=== PATIENT | male | born 1985 | race Hispanic/Latino ===

== ENCOUNTER 2019-05-18 06:58 | Emergency (ER) | payer SELFPAY ==
[~2019-05-18 06:58] MED LIST: HEMORRHOIDAL OINTMENT 57 GM CREAM.GM. RC SCH
[2019-05-18 07:49] LABS: BASOPHILS % (AUTO) 0.5 % (0.0-5.0); EOSINOPHILS % (AUTO) 0.8 % (0.0-8.0); HEMATOCRIT 49.2 % (42-54); LYMPHOCYTES % (AUTO) 14.7 % (21.0-51.0); MEAN CORPUSCULAR VOLUME 84.8 fL (79-99); MONOCYTES % (AUTO) 7.9 % (3.0-13.0); NEUTROPHILS % (AUTO) 76.1 % (40.0-77.0); PLATELET COUNT (AUTO) 263 K/uL (130-400); RED CELL DISTRIBUTION WIDTH 14.3 % (11.0-15.5); WHITE BLOOD COUNT (AUTO) 18.9 K/uL (4.8-10.8)
[2019-05-18] MEDS ORDERED: ONDANSETRON HCL 4 MG/2 ML VIAL ONE (07:53)
[2019-05-18] MEDS ORDERED: FAMOTIDINE/PF 20 MG/2 ML VIAL IV ONE (07:54)
[2019-05-18] MEDS ORDERED: SODIUM CHLORIDE 0.9% 1000ML 1,000 ML IV ONE (07:54)
[2019-05-18 08:01] LABS: CREATININE 0.7 mg/dL (0.5-1.5); POTASSIUM 4.3 mmol/L (3.5-5.1)
[2019-05-18 08:07] LABS: ALBUMIN 3.9 g/dL (3.5-5.0); BILIRUBIN,TOTAL 0.3 mg/dL (0.2-1.0); INR 0.98 (0.85-1.15); PARTIAL THROMBOPLASTIN TIME 31.6 SEC (26.3-35.5); PROTHROMBIN TIME 10.3 SEC (9.6-11.6); TOTAL PROTEIN, SERUM 7.1 g/dL (6.0-8.3)
[2019-05-18 08:34] LABS: APPEARANCE,URINE Clear (CLEAR); BILIRUBIN,URINE Negative (NEGATIVE); COLOR,URINE Yellow (YELLOW); GLUCOSE, URINE (UA) Negative (NEGATIVE); KETONES,URINE Negative (NEGATIVE); LEUKOCYTE ESTERASE ,URINE Negative (NEGATIVE); NITRATE,URINE Negative (NEGATIVE); OCCULT BLOOD,URINE Negative (NEGATIVE); PH,URINE 5.5 (5.0-8.0); PROTEIN,URINE Negative (NEGATIVE)
[2019-05-18 08:38] LABS: AMPHET/METH SCREEN,URINE NEGATIVE (NEGATIVE); BARBITURATE SCREEN, URINE NEGATIVE (NEGATIVE); BENZODIAZEPINES SCREEN,URINE POSITIVE (NEGATIVE); CANNABINOID SCREEN,URINE POSITIVE (NEGATIVE); COCAINE SCREEN,URINE NEGATIVE (NEGATIVE); OPIATE SCREEN,URINE NEGATIVE (NEGATIVE); PHENCYCLIDINE SCREEN,URINE NEGATIVE (NEGATIVE)
[2019-05-18 10:47] LABS: HEMATOCRIT 45.4 % (42-54)
[2019-05-18] MEDS ORDERED: LEVOFLOXACIN 500 MG TABLET ONE (11:04)
== END 2019-05-18 11:26 | disposition home or self-care (01) ==
LOC: EDH 06:58
DX: K64.0 First degree hemorrhoids (principal); K92.2 Gastrointestinal hemorrhage, unspecified; D72.829 Elevated white blood cell count, unspecified; I10 Essential (primary) hypertension
CPT/HCPCS: 36415; 71045; 74176; 80053; 80305; 81003; 82150; 82270; 82550; 83690; 84484; 85014; 85018; 85025; 85610; 85730; 93005; 96361; 96374; 96375; 99285; J2405; J3490; J7030

== ENCOUNTER 2019-05-31 15:35 | Inpatient (IN) | payer OTHER ==
[~2019-05-31] VITALS: Ht 167.6 cm; Wt 117.0 kg
[2019-05-31] MEDS ORDERED: IOHEXOL-350 75 ML VIAL IV ONE (16:34)
[2019-05-31 16:37] LABS: BASOPHILS % (AUTO) 0.5 % (0.0-5.0); EOSINOPHILS % (AUTO) 1.8 % (0.0-8.0); HEMATOCRIT 50.3 % (42-54); LYMPHOCYTES % (AUTO) 19.9 % (21.0-51.0); MEAN CORPUSCULAR HEMOGLOBIN 28.4 pg (27.0-33.0); MEAN CORPUSCULAR HGB CONC 33.2 g/dL (32.0-36.0); MEAN CORPUSCULAR VOLUME 85.5 fL (79-99); MONOCYTES % (AUTO) 7.1 % (3.0-13.0); NEUTROPHILS % (AUTO) 70.7 % (40.0-77.0); PLATELET COUNT (AUTO) 255 K/uL (130-400); RED BLOOD CELL COUNT(AUTO) 5.88 MIL/uL (4.50-6.20); RED CELL DISTRIBUTION WIDTH 14.4 % (11.0-15.5); WHITE BLOOD COUNT (AUTO) 13.7 K/uL (4.8-10.8)
[2019-05-31] MEDS ORDERED: ONDANSETRON HCL 4 MG/2 ML VIAL ONE (16:37)
[2019-05-31] MEDS ORDERED: SODIUM CHLORIDE 0.9% 1000ML 1,000 ML IV ONE ×2 (16:38→18:45)
[2019-05-31] MEDS ORDERED: MORPHINE SULFATE 4 MG/1ML SYG ONE ×2 (16:38→18:45)
[2019-05-31 16:51] LABS: APPEARANCE,URINE Clear (CLEAR); BILIRUBIN,URINE Negative (NEGATIVE); COLOR,URINE Yellow (YELLOW); GLUCOSE, URINE (UA) Negative (NEGATIVE); KETONES,URINE Trace mg/dL (NEGATIVE); LEUKOCYTE ESTERASE ,URINE Negative (NEGATIVE); NITRATE,URINE Negative (NEGATIVE); OCCULT BLOOD,URINE Negative (NEGATIVE); PROTEIN,URINE Negative (NEGATIVE)
[2019-05-31 16:54] LABS: CREATININE 0.7 mg/dL (0.5-1.5); POTASSIUM 4.4 mmol/L (3.5-5.1)
[2019-05-31 16:58] LABS: ALBUMIN 4.3 g/dL (3.5-5.0); BILIRUBIN,TOTAL 0.5 mg/dL (0.2-1.0); TOTAL PROTEIN, SERUM 7.9 g/dL (6.0-8.3)
[2019-05-31] MEDS ORDERED: LEVOFLOXACIN 750 MG/D5W 150 ML 150 ML ONE (18:44)
[2019-05-31] MEDS ORDERED: ONDANSETRON HCL 4 MG/2 ML VIAL IVP PRN (19:30)
[2019-05-31] MEDS ORDERED: ACETAMINOPHEN 325 MG TAB PO PRN (19:30)
[2019-05-31] MEDS: SODIUM CHLORIDE 0.9% 1000ML 1,000 ML IV SCH (22:36)
--- NOTE | 2019-05-31 22:45 | NUR ---
Nursing Note Spoke with washhouse hand to inform her about pt's statement's and going to need a 1:1 sitter. supervisor inspecting stated she doesn't have anyone to sit with the pt.
--- NOTE | 2019-05-31 22:50 | NUR ---
Nursing Note Spoke with Dr. Hankins that pt may need a 1:1 sitter since pt has stated in the past he has had a plan to commit suicide and pt stated that right now "I don't have a plan but I do have my crisis number and I do want to find a way out" "I just feel real depressed right now and with everything I have been told today" Pt is also going through a divorce. Also informed Dr. Hankins that the pt stated he is still in pain. Dr. Hankins stated he was not going to give the pt anything else and to order a 1:1 sitter for the pt.
--- NOTE | 2019-05-31 22:53 | NUR ---
Nursing Note Informed operations supervisor that Dr. Hankins wants a 1:1 sitter on the pt. operations supervisor stated she doesn't have anyone to watch the pt for the SCREEN TACKER to keep frequent checks on him. She also wanted the pt to be moved from room 327 to room 322 in front of the nurses station but still stating she doesn't have anyone to help us watch the pt.
[2019-05-31] MEDS ORDERED: HYDR-4379 PO (23:10)
--- NOTE | 2019-05-31 23:10 | NUR ---
Nursing Note Radiology called and informed me that the CT abd/pelvis that was already done is basically looking at the same thing as the order of the ct right hip. Radiologist stated that since it is with contrast then the recommendation is for the right hip to wait at least until morning or 24 hours since the abd/pelvis was already done with contrast.
[2019-05-31] MEDS ORDERED: DIVA-78 PO (23:20)
[2019-05-31] MEDS ORDERED: ALPR1TAB7 PO (23:20)
[2019-05-31] MEDS ORDERED: ESOM40CA PO (23:20)
[2019-05-31] MEDS ORDERED: PRAZ1CAP5 PO (23:20)
[2019-05-31] MEDS ORDERED: ATOR20TA PO (23:20)
[2019-05-31] MEDS ORDERED: HYDR50CA50 PO (23:20)
[2019-05-31] MEDS ORDERED: GABA-531 PO (23:20)
[2019-05-31] MEDS ORDERED: CLOP75TA32 PO (23:20)
[2019-05-31] MEDS ORDERED: ESCI10TA54 PO (23:20)
[2019-05-31] MEDS ORDERED: OLAN5TAB27 PO (23:20)
[2019-05-31] MEDS ORDERED: PANT40TA25 PO (23:20)
[2019-05-31] MEDS ORDERED: METO25TA6 PO (23:20)
[2019-05-31] MEDS ORDERED: NAPR-1023 PO (23:20)
[2019-05-31] MEDS ORDERED: OXCA300T28 PO (23:20)
[2019-05-31] MEDS ORDERED: ASPI-1026 PO (23:20)
--- NOTE | 2019-05-31 23:54 | NUR ---
Nursing Note Pt has been moved to room 322. Pt is being watched by CORNEL Whipple and Nurse Hardwick. We trying to watch the pt by rotating with each other and between work load.
[2019-06-01] VITALS (8 sets, daily range): BP systolic 123–158; BP diastolic 53–95
[2019-06-01] MEDS: MORPHINE SULFATE 2 MG/ML 1ML SYG IVP PRN ×2 (04:36→09:53)
[2019-06-01 06:40] LABS: HEMATOCRIT 44.4 % (42-54); MEAN CORPUSCULAR HEMOGLOBIN 28.8 pg (27.0-33.0); MEAN CORPUSCULAR HGB CONC 33.4 g/dL (32.0-36.0); MEAN CORPUSCULAR VOLUME 86.3 fL (79-99); NUCLEATED RED BLOOD CELLS 0.1 % (0.0-0.19); PLATELET COUNT (AUTO) 203 K/uL (130-400); RED BLOOD CELL COUNT(AUTO) 5.15 MIL/uL (4.50-6.20); WHITE BLOOD COUNT (AUTO) 10.7 K/uL (4.8-10.8)
[2019-06-01 06:49] LABS: MAGNESIUM 1.8 mg/dL (1.80-2.40); PHOSPHORUS 4.1 mg/dL (2.5-4.9); POTASSIUM 3.8 mmol/L (3.5-5.1)
--- NOTE | 2019-06-01 09:47 | NUR ---
DANA Emanuel met with pt who states he lives with his mother Zahida Torres [phone]. Pt reports he works at [employer], uses a cane prn, no in home care services. PCP is Dr Edmund Britt, has BC[employer] and has rx coverages. Pt denies dc needs at this time. Plan is home with mom. Addendum: 06/01/19 at 0950 by CONRADO DUNBAR SS Amended: Links added.
[2019-06-01] MEDS: SODIUM CHLORIDE 0.9% 1000ML 1,000 ML IV SCH ×2 (09:53→21:55)
[2019-06-01] MEDS ORDERED: IOHEXOL-350 75 ML VIAL IV ONE (11:11)
--- NOTE | 2019-06-01 14:30 | NUR ---
PER DR. CASTILLO HE NOTIFIED DR. TUCKER RE; RIGH HIP MUSCLE MASS.
--- NOTE | 2019-06-01 14:30 | NUR ---
Nutrition intervention: Nutrition notification for wt loss d/t not wanting to eat. Pt reports he has lost 20lb in the past 2 wks d/t fear of eating because it leads to bloody stools. Pt reports no concerns with chewing or swallowing but does report a high amount of pain. Pt's RN-Vahid aware of pt's pain. Spoke to pt about taking Ensure TID in place for his meals-pt agrees. Recommendations: Continue current diet therapy. Ensure TID for caloric intake. Monitor po intake and tolerance. Consult RD as nutrition concerns arise. Addendum: 06/01/19 at [address] Amended: Links added.
--- NOTE | 2019-06-01 15:16 | NUR ---
PATIENT COMPLAINING OF BRIGHT RED BLOODY STOOLS X 6. DR. CASTILLO AWARE STATES CONSULT GI SUPERVISOR TUNNEL HEADING.
--- NOTE | 2019-06-01 15:17 | NUR ---
KAYE OF DR. PEDERSEN OFFICE AWARE OF CONSULT STATES WILL LET DR. HEATH KNOW TODAY. INFORMATION GIVEN TO ROSA ISELA RESTREPO. RE; GI BLEED, VS INFLAMMATORY BOWEL. HX OF HEMORRHOIDS.
--- NOTE | 2019-06-01 16:00 | NUR ---
DR. MULLEN AWARE OF CONSULT [facility], STATES WILL SEE PATIENT EVENING OR TOMORROW.
[2019-06-01] MEDS ORDERED: PEG 3350/NA SULF,BICARB,CL/KCL 4000 ML SOLN PO SCH (17:00)
[2019-06-01] MEDS: HYDROMORPHONE 1 MG/1 ML AMP IVP PRN ×2 (17:22→23:32)
[2019-06-02] VITALS (23 sets, daily range): BP systolic 106–155; BP diastolic 61–93
--- NOTE | 2019-06-02 01:12 | NUR ---
NOTE PATIENT HAS LEFT ABOUT AN INCH LEFT ON JUG OF BOWEL PREP. HAS HAD SEVERAL BOWEL MOVEMENT. SAYS THE LAST ONE IS WATERY BROWN. ASKED HIM TO SHOW ME THE NEXT ONE.
--- NOTE | 2019-06-02 04:28 | NUR ---
NOTE LAST TWO BOWEL MOVEMENTS HAVE BEEN YELLOW TINGED WATERY LIQUID WITH SOME PARTICLES.
[2019-06-02] MEDS: HYDROMORPHONE 1 MG/1 ML AMP IVP PRN ×4 (04:52→19:33)
--- NOTE | 2019-06-02 06:05 | NUR ---
NOTE GI LAB STAFF HERE TO TAKE PATIENT FOR COLONOSCOPY PROCEDURE. FAMILY MEMBER THAT ARRIVED THIS AM ACCOMPANIED.
[2019-06-02] MEDS: SODIUM CHLORIDE 0.9% 1000ML 1,000 ML IV SCH (11:15)
[2019-06-02] MEDS ORDERED: GADODIAMIDE 10 MMOL/20 ML VIAL IV ONE (12:40)
[2019-06-03] MEDS: SODIUM CHLORIDE 0.9% 1000ML 1,000 ML IV SCH (03:11)
[2019-06-03 04:10] VITALS: BP 104/71
[2019-06-03] MEDS: HYDROMORPHONE 1 MG/1 ML AMP IVP PRN ×3 (04:27→20:27)
[2019-06-03 08:00] VITALS: BP 137/78
[2019-06-03 12:00] VITALS: BP 133/94
[2019-06-03 16:00] VITALS: BP 134/89
--- NOTE | 2019-06-03 19:07 | NUR ---
DR. MULLEN WILL SEE PATIENT TOMORROW.
[2019-06-03 20:00] VITALS: BP 138/77
[2019-06-03] MEDS: LACTULOSE 20 GM/30 ML UDCUP PO SCH (20:27)
[2019-06-04] VITALS (7 sets, daily range): BP systolic 99–150; BP diastolic 54–83
[2019-06-04] MEDS: HYDROMORPHONE 1 MG/1 ML AMP IVP PRN ×4 (02:10→23:17)
[2019-06-04] MEDS: SODIUM CHLORIDE 0.9% 1000ML 1,000 ML IV SCH ×2 (02:11→23:40)
[2019-06-04] MEDS: LACTULOSE 20 GM/30 ML UDCUP PO SCH ×2 (08:57→20:09)
--- NOTE | 2019-06-04 15:43 | NUR ---
DR HORTON WAS NOTIFIED ABOUT THE CONSULT. NO ORDERS GIVEN.
[2019-06-04] MEDS: OXCARBAZEPINE 300 MG TAB PO SCH (20:09)
[2019-06-04] MEDS: GABAPENTIN 300 MG CAPSULE PO SCH (20:09)
[2019-06-04] MEDS: HYDROCODONE/ACETAMINOPHEN 7.5/325 MG TAB PO PRN (20:09)
[2019-06-04] MEDS: ALPRAZOLAM 1 MG TAB PO SCH (20:09)
[2019-06-04] MEDS: ATORVASTATIN CALCIUM 40 MG TABLET PO SCH (20:09)
[2019-06-04] MEDS: METOPROLOL TARTRATE 25 MG TAB PO SCH (20:10)
--- NOTE | 2019-06-04 20:10 | NUR ---
MEDS SHIFT ASSESSMENT DONE, PLEASE REFER TO CHART. PT CLAIMS OF PAINS ON HIS RECTAL AREA. FEELING WARM ON HIS RT HIP AREA. DUE MEDS ADMINISTERED, NORCO PO GIVEN FOR PAINS. PT TOLERATED WELL. KEPT RESTED AND COMFORTABLE. IVF CONTINUED. CALL LIGHT WITHIN REACH. WILL RE-ASSESS PT.
[2019-06-04] MEDS: PRAZOSIN HCL 1 MG PO SCH (20:11)
--- NOTE | 2019-06-04 21:10 | NUR ---
RE-ASSESS PT VERBALIZES THAT PAIN HAD SUBSIDED. PT TRYING TO GET SOME REST AND SLEEP. KEPT ROOM LIGHT DIMMED. WILL MONITOR PT.
--- NOTE | 2019-06-05 02:00 | NUR ---
ROUNDS PT RESTING WELL, NO DISTRESS NOTED. NO CONCERNS VERBALIZED. KEPT RESTED AND COMFORTABLE. CALL LIGHT WITHIN REACH. WILL MONITOR PT.
[2019-06-05 04:41] VITALS: BP 117/54
[2019-06-05] MEDS: SODIUM CHLORIDE 0.9% 1000ML 1,000 ML IV SCH ×3 (04:48→21:10)
--- NOTE | 2019-06-05 05:55 | NUR ---
ROUNDS PT RESTING WELL, FAIRLY ASLEEP. NO DISTRESS NOTED. KEPT UNDISTURBED FOR NOW. CALL LIGHT WITHIN REACH. FOR MORE CARE.
[2019-06-05 08:00] VITALS: BP 126/77
[2019-06-05] MEDS: OLANZAPINE 5 MG TAB PO SCH (09:30)
[2019-06-05] MEDS: DIVALPROEX SODIUM 250 MG TABLET.DR PO SCH (09:30)
[2019-06-05] MEDS: CLOPIDOGREL BISULFATE 75 MG TAB PO SCH (09:30)
[2019-06-05] MEDS: ASPIRIN 325 MG TABLET PO SCH (09:30)
[2019-06-05] MEDS: ALPRAZOLAM 1 MG TAB PO SCH ×2 (09:30→19:52)
[2019-06-05] MEDS: LACTULOSE 20 GM/30 ML UDCUP PO SCH ×2 (09:31→19:52)
[2019-06-05] MEDS: OXCARBAZEPINE 300 MG TAB PO SCH ×3 (09:31→21:09)
[2019-06-05] MEDS: CITALOPRAM 20 MG TABLET PO SCH (09:31)
[2019-06-05] MEDS: PANTOPRAZOLE SODIUM 40 MG TABLET.DR PO SCH (09:31)
[2019-06-05] MEDS: METOPROLOL TARTRATE 25 MG TAB PO SCH ×2 (09:31→19:52)
[2019-06-05] MEDS: GABAPENTIN 300 MG CAPSULE PO SCH ×3 (09:31→21:09)
[2019-06-05 11:00] VITALS: BP 111/62
[2019-06-05] MEDS ORDERED: HYDROXYZINE HCL 25 MG TABLET PO PRN (12:15)
[2019-06-05 12:50] LABS: BASOPHILS % (AUTO) 0.6 % (0.0-5.0); EOSINOPHILS % (AUTO) 2.5 % (0.0-8.0); HEMATOCRIT 42.4 % (42-54); LYMPHOCYTES % (AUTO) 22.6 % (21.0-51.0); MEAN CORPUSCULAR HEMOGLOBIN 29.2 pg (27.0-33.0); MEAN CORPUSCULAR HGB CONC 34.1 g/dL (32.0-36.0); MEAN CORPUSCULAR VOLUME 85.5 fL (79-99); MONOCYTES % (AUTO) 9.8 % (3.0-13.0); NEUTROPHILS % (AUTO) 64.5 % (40.0-77.0); PLATELET COUNT (AUTO) 194 K/uL (130-400); RED BLOOD CELL COUNT(AUTO) 4.96 MIL/uL (4.50-6.20); WHITE BLOOD COUNT (AUTO) 9.3 K/uL (4.8-10.8)
[2019-06-05 13:01] LABS: CREATININE 0.9 mg/dL (0.5-1.5); POTASSIUM 3.9 mmol/L (3.5-5.1)
[2019-06-05 13:02] LABS: INR 0.93 (0.85-1.15); PROTHROMBIN TIME 9.8 SEC (9.6-11.6)
[2019-06-05] MEDS ORDERED: ZOLPIDEM TARTRATE 5 MG TAB PO PRN (14:15)
[2019-06-05] MEDS: HYDROMORPHONE 1 MG/1 ML AMP IVP PRN (14:44)
[2019-06-05 16:00] VITALS: BP 106/54
[2019-06-05] MEDS: HYDROCORTISONE 25 MG SUPPOSITORY PR SCH (19:52)
[2019-06-05] MEDS: ATORVASTATIN CALCIUM 40 MG TABLET PO SCH (19:52)
[2019-06-05] MEDS: HYDROCODONE/ACETAMINOPHEN 7.5/325 MG TAB PO PRN (19:52)
--- NOTE | 2019-06-05 19:52 | NUR ---
ASSESS SHIFT ASSESSMENT DONE. PT CLAIMS OF RECTAL AND ABDOMINAL PAINS. DUE MEDS ADMINISTERED, NORCO GIVEN FOR PAINS. KEPT RESTED AND COMFORTABLE IN BED. INSTRUCTED TO BE NPO POST MN FOR PROCEDURE IN AM. WILL RE-ASSESS PT. Addendum: 06/05/19 at 2208 by CALLIE HOUSTON RN RN Amended: Links added.
[2019-06-05 20:00] VITALS: BP 144/93
[2019-06-05] MEDS: PRAZOSIN HCL 1 MG PO SCH (21:00)
--- NOTE | 2019-06-05 22:00 | NUR ---
ROUNDS PT ALREADY FAIRLY ASLEEP WITH RESPIRATIONS EVEN AND UNLABORED. NO DISTRESS NOTED. KEPT UNDISTURBED FOR NOW. CALL LIGHT WITHIN REACH. WILL MONITOR PT.
[2019-06-06] VITALS: BP 125/75
--- NOTE | 2019-06-06 01:00 | NUR ---
WALK PT SEEN WALKING AROUND THE FLOOR. NO DISTRESS NOTED.
[2019-06-06] MEDS: HYDROMORPHONE 1 MG/1 ML AMP IVP PRN ×3 (02:12→20:33)
--- NOTE | 2019-06-06 02:12 | NUR ---
PAIN PT VERBALIZES INABILITY TO SLEEP DUE TO PAIN ON HIS RECTUM AND RT HIP AREAS. MEDICATED WITH DILAUDID IV. KEPT COMFORTABLE IN BED. KEPT NPO. WILL RE-ASSESS PT.
[2019-06-06 03:58] VITALS: BP 118/77
--- NOTE | 2019-06-06 05:05 | NUR ---
ROUNDS PT STILL FAIRLY ASLEEP. NO DISTRESS NOTED. KEPT UNDISTURBED FOR NOW. CALL LIGHT WITHIN EACH. KEPT NPO. FOR MORE CARE AND MANAGEMENT.
[2019-06-06 07:00] VITALS: BP 120/74
[2019-06-06] MEDS: SODIUM CHLORIDE 0.9% 1000ML 1,000 ML IV SCH ×2 (08:35→20:28)
[2019-06-06] MEDS: CLOPIDOGREL BISULFATE 75 MG TAB PO SCH (09:00)
[2019-06-06] MEDS: CITALOPRAM 20 MG TABLET PO SCH (09:00)
[2019-06-06] MEDS: OXCARBAZEPINE 300 MG TAB PO SCH ×3 (09:00→20:24)
[2019-06-06] MEDS: PANTOPRAZOLE SODIUM 40 MG TABLET.DR PO SCH (09:00)
[2019-06-06] MEDS: DIVALPROEX SODIUM 250 MG TABLET.DR PO SCH (09:00)
[2019-06-06] MEDS: HYDROCORTISONE 25 MG SUPPOSITORY PR SCH ×2 (09:00→20:25)
[2019-06-06] MEDS: ASPIRIN 325 MG TABLET PO SCH (09:00)
[2019-06-06] MEDS: ALPRAZOLAM 1 MG TAB PO SCH ×2 (09:00→20:24)
[2019-06-06] MEDS: OLANZAPINE 5 MG TAB PO SCH (09:00)
[2019-06-06] MEDS: LACTULOSE 20 GM/30 ML UDCUP PO SCH ×2 (09:00→20:23)
[2019-06-06] MEDS: METOPROLOL TARTRATE 25 MG TAB PO SCH ×2 (09:00→20:23)
[2019-06-06] MEDS: GABAPENTIN 300 MG CAPSULE PO SCH ×3 (09:00→20:24)
[2019-06-06] MEDS ORDERED: FENTANYL CITRATE PF 50 MCG/1 ML 2ML VIAL ONE (11:26)
[2019-06-06] MEDS ORDERED: MIDAZOLAM HCL 1 MG/ML 2ML VIAL ONE (11:26)
--- NOTE | 2019-06-06 12:15 | NUR ---
CT GD RT HIP BX PROCEDURE PERFORMED BY DR Truong OLSON. PUNCTURE SITE RT HIP. SPECIMEN X4 COLLECTED AND SENT TO LAB. END OF PROCEDURE AT 1155. BIOPSY NEEDLE REMOVED AND DRESSING APPLIED. NO BLEEDING NOTED AND PATIENT TOLERATED PROCEDURE WELL. REPORT GIVEN TO Truong DODD RN AND PATIENT TRANSPORTED TO [facility] VIA BED AT 1215.
[2019-06-06 16:00] VITALS: BP 165/89
[2019-06-06 20:00] VITALS: BP 131/84
[2019-06-06] MEDS: PRAZOSIN HCL 1 MG PO SCH (20:22)
[2019-06-06] MEDS: ATORVASTATIN CALCIUM 40 MG TABLET PO SCH (20:24)
--- NOTE | 2019-06-06 21:00 | NUR ---
CARE ASSUMED CARE OF PT. CLAIMS PAIN TO RT HIP IS BETTER. ASKED FOR COLD PACKS TO APPLY AND PROVIDED. KEPT RESTED AND COMFORTABLE. CONTINUED IVF. KEPT COMFORTABLE. WILL MONITOR PT. CALL LIGHT WITHIN REACH.
[2019-06-07] VITALS: BP 113/70
--- NOTE | 2019-06-07 02:00 | NUR ---
ROUNDS PT FAIRLY ASLEEP WITH RESPIRATIONS EVEN AND UNLABORED. NO NOTED DISTRESS. KEPT UNDISTURBED FOR NOW. WILL CONTINUE TO MONITOR. CALL LIGHT WITHIN REACH. WILL MONITOR PT.
[2019-06-07 04:00] VITALS: BP 133/71
--- NOTE | 2019-06-07 05:36 | NUR ---
ROUNDS PT ALREADY AWAKE. NO CONCERNS VERBALIZED. NO DISTRESS NOTED. KEPT RESTED AND COMFORTABLE. FOR MORE CARE.
[2019-06-07 08:00] VITALS: BP 149/80
[2019-06-07] MEDS: HYDROMORPHONE 1 MG/1 ML AMP IVP PRN (08:43)
[2019-06-07] MEDS: LACTULOSE 20 GM/30 ML UDCUP PO SCH (10:31)
[2019-06-07] MEDS: CLOPIDOGREL BISULFATE 75 MG TAB PO SCH (10:32)
[2019-06-07] MEDS: DIVALPROEX SODIUM 250 MG TABLET.DR PO SCH (10:32)
[2019-06-07] MEDS: PANTOPRAZOLE SODIUM 40 MG TABLET.DR PO SCH (10:32)
[2019-06-07] MEDS: CITALOPRAM 20 MG TABLET PO SCH (10:32)
[2019-06-07] MEDS: ALPRAZOLAM 1 MG TAB PO SCH (10:32)
[2019-06-07] MEDS: METOPROLOL TARTRATE 25 MG TAB PO SCH (10:33)
[2019-06-07] MEDS: ASPIRIN 325 MG TABLET PO SCH (10:33)
[2019-06-07] MEDS: HYDROCORTISONE 25 MG SUPPOSITORY PR SCH (10:33)
[2019-06-07] MEDS: OLANZAPINE 5 MG TAB PO SCH (10:33)
[2019-06-07] MEDS: SODIUM CHLORIDE 0.9% 1000ML 1,000 ML IV SCH (10:39)
[2019-06-07] MEDS: OXCARBAZEPINE 300 MG TAB PO SCH ×2 (10:39→16:52)
[2019-06-07] MEDS: GABAPENTIN 300 MG CAPSULE PO SCH ×2 (10:39→16:52)
[2019-06-07 12:00] VITALS: BP 124/80
--- NOTE | 2019-06-07 14:50 | NUR ---
RD Follow up Pt tolerating current diet with no report of GI distress and PO intake at 100%. Pt 1:1 observation discontinued as per EMR. Pt LBM 06/06/19. Pt monitored labs: Glu 112. No nutrition concerns at this time. RD to continue to monitor. Please notify as nutritional concerns arise. Thank you. Addendum: 06/07/19 at [address] Amended: Links added.
--- NOTE | 2019-06-07 17:19 | NUR ---
DISCHARGE Instructions provided. Patient is aware no appointment was made for [facility]. Talent Acquisition Sourcer tried to make appoiontment but information was that patient needs to call himself due to [facility] needs to inform patient how they work as there are costs related to care. Patient was made aware of this and verbalized and demonstrated understanding. He left hospital in no distress, accompanied by his children and ex-. Appointments for oncology and orthopedic surgeon were scheduled and information given to patient. Hep lock was removed from left hand # 20 gauge without any issues.
== END 2019-06-07 17:20 | disposition home or self-care (01) | DRG 393 ==
LOC: EDH 15:35 → EDHIP 15:36 → 3DH 21:49
PROVIDERS: ADMIT Internal Medicine Infectious Disease; ATTEND Internal Medicine Infectious Disease
PROC: 0DBQ8ZX Excision of Anus, Via Natural or Artificial Opening Endoscopic, Diagnostic (ICD-10-PCS; principal; 2019-06-02)
PROC: 0SB Lower Joints, Excision (ICD-10-PCS; 2019-06-02)
DX: K64.0 First degree hemorrhoids (principal); K57.31 Diverticulosis of large intestine without perforation or abscess with bleeding; Z68.41 Body mass index [BMI] 40.0-44.9, adult; R45.851 Suicidal ideations; K62.89 Other specified diseases of anus and rectum; D72.829 Elevated white blood cell count, unspecified; E11.9 Type 2 diabetes mellitus without complications; E66.01 Morbid (severe) obesity due to excess calories; F17.210 Nicotine dependence, cigarettes, uncomplicated; F32.9 Major depressive disorder, single episode, unspecified; F43.22 Adjustment disorder with anxiety; G89.29 Other chronic pain; I10 Essential (primary) hypertension; M23.41 Loose body in knee, right knee; K64.4 Residual hemorrhoidal skin tags; Z71.89 Other specified counseling; I25.2 Old myocardial infarction; Z79.899 Other long term (current) drug therapy; Z88.8 Allergy status to other drugs, medicaments and biological substances; Z86.73 Personal history of transient ischemic attack (TIA), and cerebral infarction without residual deficits; Z80.0 Family history of malignant neoplasm of digestive organs
CPT/HCPCS: 20200; 36415; 45380; 71046; 73702; 73723; 74177; 77012; 80048; 80053; 81003; 83690; 83735; 84100; 85025; 85027; 85610; 88305; 88307; 99152; A9579; G0378; J1170; J1956; J2250; J2270; J2405; J3010; J7030; Q9967

== ENCOUNTER 2019-06-10 13:20 | Emergency (ER) | payer OTHER ==
[~2019-06-10 13:20] MED LIST changes: +ALPR1TAB7 PO; +ASPI-1026 PO; +ATOR20TA PO; +CLOP75TA32 PO; +DIVA-78 PO; +ESCI10TA54 PO; +ESOM40CA PO; +GABA-531 PO; -HEMORRHOIDAL OINTMENT 57 GM CREAM.GM. RC SCH; +HYDR-4379 PO; +HYDR50CA50 PO; +METO25TA6 PO; +NAPR-1023 PO; +OLAN5TAB27 PO; +OXCA300T28 PO; +PANT40TA25 PO; +PRAZ1CAP5 PO
[2019-06-10] MEDS ORDERED: ONDANSETRON HCL 4 MG/2 ML VIAL ONE (13:59)
[2019-06-10] MEDS ORDERED: SODIUM CHLORIDE 0.9% 1000ML 1,000 ML IV ONE (13:59)
[2019-06-10 14:29] LABS: BASOPHILS % (AUTO) 0.6 % (0.0-5.0); EOSINOPHILS % (AUTO) 1.9 % (0.0-8.0); HEMATOCRIT 46.1 % (42-54); LYMPHOCYTES % (AUTO) 19.7 % (21.0-51.0); MEAN CORPUSCULAR HEMOGLOBIN 28.6 pg (27.0-33.0); MEAN CORPUSCULAR HGB CONC 33.4 g/dL (32.0-36.0); MEAN CORPUSCULAR VOLUME 85.5 fL (79-99); MONOCYTES % (AUTO) 7.9 % (3.0-13.0); NEUTROPHILS % (AUTO) 69.9 % (40.0-77.0); PLATELET COUNT (AUTO) 231 K/uL (130-400); RED BLOOD CELL COUNT(AUTO) 5.39 MIL/uL (4.50-6.20); RED CELL DISTRIBUTION WIDTH 13.8 % (11.0-15.5); WHITE BLOOD COUNT (AUTO) 11.4 K/uL (4.8-10.8)
[2019-06-10 15:08] LABS: CREATININE 0.7 mg/dL (0.5-1.5); POTASSIUM 4.2 mmol/L (3.5-5.1)
[2019-06-10 15:12] LABS: ALBUMIN 3.7 g/dL (3.5-5.0); BILIRUBIN,DIRECT 0.1 mg/dL (0.0-0.3); BILIRUBIN,TOTAL 0.5 mg/dL (0.2-1.0); TOTAL PROTEIN, SERUM 7.1 g/dL (6.0-8.3)
[2019-06-10 15:38] LABS: APPEARANCE,URINE Clear (CLEAR); BILIRUBIN,URINE Negative (NEGATIVE); COLOR,URINE Yellow (YELLOW); GLUCOSE, URINE (UA) Negative (NEGATIVE); KETONES,URINE Negative (NEGATIVE); LEUKOCYTE ESTERASE ,URINE Negative (NEGATIVE); NITRATE,URINE Negative (NEGATIVE); OCCULT BLOOD,URINE Negative (NEGATIVE); PROTEIN,URINE Negative (NEGATIVE)
[2019-06-10 15:45] LABS: AMPHET/METH SCREEN,URINE NEGATIVE (NEGATIVE); BARBITURATE SCREEN, URINE NEGATIVE (NEGATIVE); BENZODIAZEPINES SCREEN,URINE NEGATIVE (NEGATIVE); CANNABINOID SCREEN,URINE POSITIVE (NEGATIVE); COCAINE SCREEN,URINE POSITIVE (NEGATIVE); OPIATE SCREEN,URINE NEGATIVE (NEGATIVE); PHENCYCLIDINE SCREEN,URINE NEGATIVE (NEGATIVE)
== END 2019-06-10 16:49 | disposition home or self-care (01) ==
LOC: EDH 13:20
DX: K52.9 Noninfective gastroenteritis and colitis, unspecified (principal); F14.10 Cocaine abuse, uncomplicated; I10 Essential (primary) hypertension; Z87.891 Personal history of nicotine dependence
CPT/HCPCS: 36415; 80048; 80076; 80305; 81003; 82550; 83690; 85025; 96361; 96374; 99285; J2405; J7030

== ENCOUNTER 2019-09-07 12:39 | Inpatient (IN) | payer BC, OTHER ==
[~2019-09-07] VITALS: Ht 154.9 cm; Wt 113.9 kg
[2019-09-07 13:26] LABS: BASOPHILS % (AUTO) 0.6 % (0.0-5.0); HEMATOCRIT 48.7 % (42-54); LYMPHOCYTES % (AUTO) 22.1 % (21.0-51.0); MEAN CORPUSCULAR HEMOGLOBIN 28.6 pg (27.0-33.0); MEAN CORPUSCULAR VOLUME 84.1 fL (79-99); MONOCYTES % (AUTO) 7.8 % (3.0-13.0); NEUTROPHILS % (AUTO) 68.5 % (40.0-77.0); PLATELET COUNT (AUTO) 243 K/uL (130-400); RED BLOOD CELL COUNT(AUTO) 5.79 MIL/uL (4.50-6.20); WHITE BLOOD COUNT (AUTO) 11.9 K/uL (4.8-10.8)
[2019-09-07 13:34] LABS: CREATININE 0.8 mg/dL (0.5-1.5); INR 0.89 (0.85-1.15); PARTIAL THROMBOPLASTIN TIME 27.5 SEC (26.3-35.5); POTASSIUM 4.3 mmol/L (3.5-5.1); PROTHROMBIN TIME 9.4 SEC (9.6-11.6)
[2019-09-07 13:39] LABS: ALBUMIN 3.5 g/dL (3.5-5.0); BILIRUBIN,TOTAL 0.2 mg/dL (0.2-1.0); TOTAL PROTEIN, SERUM 6.9 g/dL (6.0-8.3)
[2019-09-07] MEDS: HEMORRHOIDAL OINTMENT 57 GM CREAM.GM. RC SCH (14:00)
[2019-09-07 15:44] LABS: APPEARANCE,URINE Clear (CLEAR); BILIRUBIN,URINE Negative (NEGATIVE); COLOR,URINE Yellow (YELLOW); GLUCOSE, URINE (UA) Negative (NEGATIVE); KETONES,URINE Negative (NEGATIVE); LEUKOCYTE ESTERASE ,URINE Negative (NEGATIVE); NITRATE,URINE Negative (NEGATIVE); OCCULT BLOOD,URINE Negative (NEGATIVE); PH,URINE 5.5 (5.0-8.0); PROTEIN,URINE Negative (NEGATIVE); UROBILINOGEN,URINE 0.2 mg/dL (0.2-1.0)
[2019-09-07] MEDS ORDERED: METRONIDAZOLE 500MG/100ML BAG 0 ML ONE (16:14)
[2019-09-07] MEDS ORDERED: LEVOFLOXACIN 500 MG/D5W 100 ML 100 ML ONE (16:14)
[2019-09-07] MEDS ORDERED: METRONIDAZOLE 500MG/100ML BAG 100 ML ONE (16:50)
[2019-09-07 17:00] VITALS: BP 159/78
[2019-09-07] MEDS ORDERED: ONDANSETRON HCL 4 MG/2 ML VIAL IVP PRN (17:15)
[2019-09-07] MEDS: LEVOFLOXACIN 500 MG/D5W 100 ML 100 ML IV SCH (17:36)
[2019-09-07] MEDS: MORPHINE SULFATE 2 MG/ML 1ML SYG IVP PRN (17:36)
--- NOTE | 2019-09-07 19:14 | NUR ---
Notified SAMANTHA Amezcua fro Dr. Toscano, of consult. Rec'd order for GI consult. Notified Dr. Mitch Mary of new consult. stated he would review.
[2019-09-07 19:20] VITALS: BP 132/92
[2019-09-07 21:17] LABS: HEMATOCRIT 47.6 % (42-54)
[2019-09-08] VITALS (7 sets, daily range): BP systolic 109–151; BP diastolic 59–93
[2019-09-08] MEDS ORDERED: METRONIDAZOLE 500MG/100ML BAG 100 ML ONE (02:38)
[2019-09-08] MEDS: MORPHINE SULFATE 2 MG/ML 1ML SYG IVP PRN ×2 (04:21→10:56)
[2019-09-08 04:30] LABS: BASOPHILS % (AUTO) 1.2 % (0.0-5.0); EOSINOPHILS % (AUTO) 2.4 % (0.0-8.0); HEMATOCRIT 48.1 % (42-54); LYMPHOCYTES % (AUTO) 33.9 % (21.0-51.0); MEAN CORPUSCULAR HEMOGLOBIN 28.7 pg (27.0-33.0); MEAN CORPUSCULAR VOLUME 84.5 fL (79-99); MONOCYTES % (AUTO) 10.1 % (3.0-13.0); NEUTROPHILS % (AUTO) 52.4 % (40.0-77.0); NUCLEATED RED BLOOD CELLS 0.1 % (0.0-0.19); PLATELET COUNT (AUTO) 287 K/uL (130-400); RED BLOOD CELL COUNT(AUTO) 5.69 MIL/uL (4.50-6.20); RED CELL DISTRIBUTION WIDTH 13.7 % (11.0-15.5); WHITE BLOOD COUNT (AUTO) 14.3 K/uL (4.8-10.8)
[2019-09-08 04:49] LABS: MAGNESIUM 1.5 mg/dL (1.80-2.40); POTASSIUM 3.8 mmol/L (3.5-5.1)
[2019-09-08] MEDS ORDERED: SENN-2 PO (09:49)
[2019-09-08] MEDS ORDERED: CLOP75TA32 PO (09:49)
[2019-09-08] MEDS ORDERED: CYAN250014 PO (09:49)
[2019-09-08] MEDS: METRONIDAZOLE 500MG/100ML BAG 100 ML IVPB SCH ×2 (10:50→18:30)
[2019-09-08] MEDS ORDERED: PEG 3350/NA SULF,BICARB,CL/KCL 4000 ML SOLN PO SCH (13:00)
[2019-09-08] MEDS: HEMORRHOIDAL OINTMENT 57 GM CREAM.GM. RC SCH (14:00)
--- NOTE | 2019-09-08 15:31 | NUR ---
DCP CM met with pt discussed dc plans. Pt is independent lives at home w/mother. Pt has a cane he uses prn only. Denies any equipments/services. Feels safe to go back home, still drives and works, mother able to assist with transportation and needs as necessary. DC plan to home once stable. CM to cont to follow up. Addendum: 09/08/19 at 1532 by VENKAT MATHIAS LVN CM Amended: Links added.
[2019-09-08] MEDS: HYDROMORPHONE HCL 2 MG/ML VIAL IVP PRN (18:37)
[2019-09-08] MEDS ORDERED: LEVOFLOXACIN 500 MG/D5W 100 ML 100 ML IV SCH (20:15)
[2019-09-09] VITALS (17 sets, daily range): BP systolic 86–137; BP diastolic 45–92
[2019-09-09] MEDS: HYDROMORPHONE HCL 2 MG/ML VIAL IVP PRN ×3 (01:52→20:54)
[2019-09-09] MEDS: METRONIDAZOLE 500MG/100ML BAG 100 ML IVPB SCH ×3 (01:53→18:12)
--- NOTE | 2019-09-09 06:45 | NUR ---
TO GI LAB Pt tolerated the golitely prep from the am shift, stool from tarry colored last night to liquid yellow bm until early am. Pt showered , npo since mn, taken to GI lab for the colonoscopy with mac this am.
[2019-09-09] MEDS ORDERED: PROPOFOL 10 MG/ML 20ML VIAL IV ONE (06:55)
[2019-09-09] MEDS ORDERED: LIDOCAINE HCL 1% 20 ML VIAL ONE (06:55)
[2019-09-09] MEDS ORDERED: GLYCOPYRROLATE 0.2 MG/ML 5 ML VIAL ONE (06:56)
[2019-09-09 07:05] LABS: HEMATOCRIT 43.5 % (42-54); MEAN CORPUSCULAR HGB CONC 33.9 g/dL (32.0-36.0); MEAN CORPUSCULAR VOLUME 85.5 fL (79-99); NUCLEATED RED BLOOD CELLS 0.1 % (0.0-0.19); PLATELET COUNT (AUTO) 232 K/uL (130-400); RED BLOOD CELL COUNT(AUTO) 5.09 MIL/uL (4.50-6.20); RED CELL DISTRIBUTION WIDTH 14.4 % (11.0-15.5); WHITE BLOOD COUNT (AUTO) 10.9 K/uL (4.8-10.8)
[2019-09-09] MEDS ORDERED: EPHEDRINE SULFATE 50 MG/ML AMPULE ONE (07:06)
[2019-09-09 07:11] LABS: CREATININE 0.9 mg/dL (0.5-1.5); POTASSIUM 4.3 mmol/L (3.5-5.1)
[2019-09-09] MEDS: HEMORRHOIDAL OINTMENT 57 GM CREAM.GM. RC SCH (14:00)
[2019-09-09] MEDS ORDERED: PEG 3350/NA SULF,BICARB,CL/KCL 4000 ML SOLN PO SCH (14:00)
[2019-09-09] MEDS: LEVOFLOXACIN 500 MG/D5W 100 ML 100 ML IV SCH (16:05)
[2019-09-09] MEDS ORDERED: MAGNESIUM CITRATE 296 ML SOLUTION ONE (23:29)
--- NOTE | 2019-09-09 23:40 | NUR ---
CALLED Pt going for colonoscopy procedure in the am, was sent back this am because of poor prep. Was given the same golitely prep by the day shift, still having liquid stool and pt just wants to make sure that his procedure can be done in the am, wants to know if he can have a magnesium citrate which he had taken the previous time that he was taken for colonoscopy and never had problems with the prep at all. Called Dr. Mitch Mary called, left a message.
[2019-09-10] VITALS (12 sets, daily range): BP systolic 104–144; BP diastolic 62–89
--- NOTE | 2019-09-10 00:30 | NUR ---
FOLLOW UP CALL Dr. Mary called again at another number/ pager no. provided by the medical housekeeper, returned the call in 3 minutes. Made aware about the pt's concern that his colonoscopy wont go smoothly again and wanted to have magnesium citrate as per pt's request , okayed the one time prep which was given. Pt happy about the outcome. Reinforced npo post mn after this last prep gets done.
[2019-09-10] MEDS ORDERED: MAGNESIUM CITRATE 296 ML SOLUTION PO ONE (00:45)
[2019-09-10] MEDS: METRONIDAZOLE 500MG/100ML BAG 100 ML IVPB SCH ×3 (02:02→18:31)
--- NOTE | 2019-09-10 06:55 | NUR ---
PATIENT UPDATE Last bm after the magcitrate last night came out dark brownish with small amount of loose brownish stools. Patient worried again, wondering why it's clear initially then started getting dirty again. Taken to GI lab by dayna at this time.
[2019-09-10] MEDS ORDERED: PROPOFOL 10 MG/ML 20ML VIAL IV ONE ×2 (07:01)
--- NOTE | 2019-09-10 07:35 | NUR ---
Pt off the floor for colonoscopy by Dr. Usman Meyer at del time.
--- NOTE | 2019-09-10 07:55 | NUR ---
Pt back from colonoscopy at this time, First set of abbie ferrara, Pt will continue to monitor. Addendum: 09/10/19 at 0757 by DAISY SMITH RN RN Pt back from colonoscopy at this time, First set of abbie ferrara Nursing will continue to monitor.
[2019-09-10] MEDS: HYDROMORPHONE HCL 2 MG/ML VIAL IVP PRN ×2 (09:26→18:31)
[2019-09-10] MEDS ORDERED: PHARMACY COMMUNICATION MISC ONE (12:30)
[2019-09-10] MEDS: HEMORRHOIDAL OINTMENT 57 GM CREAM.GM. RC SCH (14:00)
[2019-09-10] MEDS: DOCUSATE SODIUM 100 MG CAP PO SCH ×2 (14:07→20:23)
[2019-09-10] MEDS: LEVOFLOXACIN 500 MG/D5W 100 ML 100 ML IV SCH (15:51)
[2019-09-11] MEDS: HYDROMORPHONE HCL 2 MG/ML VIAL IVP PRN ×2 (00:55→09:47)
--- NOTE | 2019-09-11 00:55 | NUR ---
DILAUDID Pt up ad ashley,ambulating around the hallway.He c/o pain to his back and rectal area.Medicated with DILAUDID IV as per request for a pain score 8/10.
--- NOTE | 2019-09-11 01:55 | NUR ---
MED EFFECT Pt slept on and off.Can't seem to sleep thru the night.He c/o abdominal discomfort this time.He's been seen drinking coffee most of the night.
[2019-09-11] MEDS: METRONIDAZOLE 500MG/100ML BAG 100 ML IVPB SCH ×2 (02:21→08:13)
[2019-09-11 03:00] VITALS: BP 131/87
--- NOTE | 2019-09-11 03:41 | NUR ---
NEW IV New iv started to rt hand x 1 attempt.Old iv to rt wrist dcd.cath tip intact.
[2019-09-11 05:42] LABS: HEMATOCRIT 42.7 % (42-54); MEAN CORPUSCULAR HEMOGLOBIN 28.6 pg (27.0-33.0); MEAN CORPUSCULAR HGB CONC 33.1 g/dL (32.0-36.0); MEAN CORPUSCULAR VOLUME 86.2 fL (79-99); PLATELET COUNT (AUTO) 246 K/uL (130-400); RED BLOOD CELL COUNT(AUTO) 4.95 MIL/uL (4.50-6.20); RED CELL DISTRIBUTION WIDTH 14.2 % (11.0-15.5); WHITE BLOOD COUNT (AUTO) 10.2 K/uL (4.8-10.8)
[2019-09-11] MEDS: DOCUSATE SODIUM 100 MG CAP PO SCH ×2 (05:44→14:00)
[2019-09-11 05:53] LABS: ALBUMIN 3.2 g/dL (3.5-5.0); BILIRUBIN,TOTAL 0.2 mg/dL (0.2-1.0); CREATININE 0.8 mg/dL (0.5-1.5); TOTAL PROTEIN, SERUM 6.4 g/dL (6.0-8.3)
[2019-09-11 07:30] VITALS: BP 102/58
[2019-09-11] MEDS ORDERED: POLYETHYLENE GLYCOL 3350 17 GM POWD.PACK PO SCH (09:00)
[2019-09-11 11:00] VITALS: BP 126/75
[2019-09-11] MEDS: HEMORRHOIDAL OINTMENT 57 GM CREAM.GM. RC SCH (14:00)
--- NOTE | 2019-09-11 15:22 | NUR ---
Pt d/c safely, PIV taken out by pt, pt monitored for a while, no complication noted, pt to f/u with PCP, Oncology and Gastrointestinal, pt refused to be taken down by w/c down stirs, pt ambulates off the floor accompanied with , with understanding of all d/c instructions and follow ups. All questions and concerns answered.
[2019-09-16] MEDS ORDERED: HYDROCORTISONE 25 MG SUPPOSITORY PR SCH (09:00)
== END 2019-09-11 15:20 | disposition home or self-care (01) | DRG 394 ==
LOC: EDH 12:39 → EDHIP 15:50 → 3BH 17:00
PROVIDERS: ADMIT Internal Medicine Infectious Disease; ATTEND Internal Medicine Infectious Disease
PROC: 0DBH8ZZ Excision of Cecum, Via Natural or Artificial Opening Endoscopic (ICD-10-PCS; principal; 2019-09-09)
PROC: 0DJD8ZZ Inspection of Lower Intestinal Tract, Via Natural or Artificial Opening Endoscopic (ICD-10-PCS; 2019-09-09)
DX: K64.8 Other hemorrhoids (principal); C49.21 Malignant neoplasm of connective and soft tissue of right lower limb, including hip; K62.5 Hemorrhage of anus and rectum; D12.0 Benign neoplasm of cecum; D72.829 Elevated white blood cell count, unspecified; E66.9 Obesity, unspecified; G89.29 Other chronic pain; I10 Essential (primary) hypertension
CPT/HCPCS: 36415; 45378; 45380; 74176; 80048; 80053; 81003; 82150; 82270; 82550; 83690; 83735; 84484; 85014; 85018; 85025; 85027; 85610; 85730; 93005; A4606; G0378; J1170; J1956; J2704; J3490

== ENCOUNTER 2019-10-20 06:50 | Emergency (ER) | payer BC ==
[~2019-10-20 06:50] MED LIST changes: -ALPR1TAB7 PO; +CYAN250014 PO; -DIVA-78 PO; -ESCI10TA54 PO; -GABA-531 PO; -HYDR-4379 PO; -HYDR50CA50 PO; -NAPR-1023 PO; -OLAN5TAB27 PO; -OXCA300T28 PO; -PANT40TA25 PO; -PRAZ1CAP5 PO; +SENN-2 PO
[2019-10-20] MEDS ORDERED: ONDANSETRON HCL 4 MG/2 ML VIAL ONE (08:00)
[2019-10-20] MEDS ORDERED: DiphenhydrAMINE HCL 50 MG/ML VIAL ONE (08:00)
[2019-10-20] MEDS ORDERED: FAMOTIDINE/PF 20 MG/2 ML VIAL IV ONE (08:01)
[2019-10-20 08:04] LABS: BASOPHILS % (AUTO) 1.6 % (0.0-5.0); HEMATOCRIT 49.3 % (42-54); LYMPHOCYTES % (AUTO) 32.1 % (21.0-51.0); MEAN CORPUSCULAR HGB CONC 33.3 g/dL (32.0-36.0); MEAN CORPUSCULAR VOLUME 84.2 fL (79-99); MONOCYTES % (AUTO) 7.5 % (3.0-13.0); NEUTROPHILS % (AUTO) 56.8 % (40.0-77.0); NUCLEATED RED BLOOD CELLS 0.1 % (0.0-0.19); PLATELET COUNT (AUTO) 240 K/uL (130-400); RED BLOOD CELL COUNT(AUTO) 5.85 MIL/uL (4.50-6.20); RED CELL DISTRIBUTION WIDTH 14.4 % (11.0-15.5); WHITE BLOOD COUNT (AUTO) 12.8 K/uL (4.8-10.8)
[2019-10-20 08:15] LABS: POTASSIUM 4.1 mmol/L (3.5-5.1)
[2019-10-20 08:20] LABS: ALBUMIN 3.9 g/dL (3.5-5.0); BILIRUBIN,TOTAL 0.2 mg/dL (0.2-1.0); TOTAL PROTEIN, SERUM 7.6 g/dL (6.0-8.3)
== END 2019-10-20 11:28 | disposition home or self-care (01) ==
LOC: EDH 06:50
DX: T78.49XA Other allergy, initial encounter (principal); R11.2 Nausea with vomiting, unspecified; I10 Essential (primary) hypertension; I25.2 Old myocardial infarction; Z86.73 Personal history of transient ischemic attack (TIA), and cerebral infarction without residual deficits; Z79.899 Other long term (current) drug therapy; X58.XXXA Exposure to other specified factors, initial encounter
CPT/HCPCS: 36415; 80053; 85025; 96374; 96375; 99284; J1200; J2405; J3490